=== PATIENT | female | born 1995 | race Caucasian/White ===

== ENCOUNTER 2017-08-30 09:04 | Emergency (ER) | payer OTHER ==
--- NOTE | 2017-08-30 11:32 | UC ---
Lobo Vann Gabriel, scribed for Gina Terry MD on 08/30/17 at 1128 . Ear Complaint HPI - HPI Summary HPI Summary: This patient is a 22 year old F presenting to [facility] with a chief complaint of bilateral ear pain since last night. The patient rates the pain 6/10 in severity. Patient reports eye discharge on waking and nasal congestion. Patient denies ear drainage, vision changes, and hearing loss. Pt was sick last week with a general cold presenting with a fever, chills, and congestion but it has resolved since. 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 Patients medication reviewed during this visit. - History of Current Complaint Chief Complaint: UCGeneralIllness Stated Complaint: EAR PAIN Time Seen by Provider: 08/30/17 11:19 Hx Obtained From: Patient Hx Last Menstrual Period: irreg. just ended a fw days ago Onset/Duration: Lasting Days, Still Present Severity Initially: Moderate Severity Currently: Moderate Pain Intensity: 6 Pain Scale Used: 0-10 Numeric Associated Signs/Symptoms: Negative: Discharge, Hearing Loss - Allergies/Home Medications Allergies/Adverse Reactions: Allergies Allergy/AdvReac Type Severity Reaction Status Date / Time No Known Allergies Allergy Verified 08/30/17 09:44 PMH/Surg Hx/FS Hx/Imm Hx Previously Healthy: Yes - Surgical History Surgical History: None - Family History Known Family History: Positive: Hypertension Negative: Cardiac Disease, Diabetes, Renal Disease, Respiratory Disease, Seizure Disorder - Social History Occupation: Employed Full-time - Nanny, Student Lives: With Family Alcohol Use: Weekly Substance Use Type: None Smoking Status (MU): Never Smoked Tobacco Review of Systems Constitutional: Negative - fever and chills Eyes: Drainage, Eye Redness ENT: Ear Ache, Sinus Pain/Tenderness All Other Systems Reviewed And Are Negative: Yes Physical Exam Triage Information Reviewed: Yes Appearance: Well-Nourished, Other: - congested Vital Signs: Initial Vital Signs Temp 97.9 F 08/30/17 09:46 Pulse 74 08/30/17 09:46 Resp 18 08/30/17 09:46 BP 143/87 08/30/17 09:46 Pulse Ox 100 08/30/17 09:46 Eyes: Positive: Conjunctiva Inflamed, Discharge, Other: - CATRACHITO, EOM intact no photophobia + injected yellow d/c ENT: Positive: Hearing grossly normal, Pharyngeal erythema, Nasal drainage, TM bulging, TM dull, TM red, Sinus tenderness, Uvula midline, Other - ++ fluid b/l ear + fluid + turbinates inflammed and boggy + PND no exudate no erythema Dental Exam: Normal Neck exam: Normal Neck: Positive: Supple, Nontender, No Lymphadenopathy Respiratory Exam: Normal Respiratory: Positive: Chest non-tender, Lungs clear, Normal breath sounds, No respiratory distress Cardiovascular Exam: Normal Abdominal Exam: Normal Musculoskeletal Exam: Normal Neurological Exam: Normal Psychological Exam: Normal Skin Exam: Normal Ear Complaint Course/Dx - Course Course Of Treatment: BP noted and advised to follow up with PCP. Pt with sinus congestion, bilateral ear pain, injected, eye discharge. Pt with bilat OM and eye injection. will Rx abx. decongestant. secretion precaution. apap/ ibuprofen - Differential Dx/Diagnosis Provider Diagnoses: Elevated blood pressure without a previous diagnoses of hypertension. conjunctivitis. bilateral otitis media Discharge - Discharge Plan Condition: Stable Disposition: HOME Prescriptions: Amoxicillin PO (*) [Amoxicillin 875 MG (*)] 875 mg PO BID #20 tab Polymyx/Trimethoprim OPTH* [Polytrim OPHTH*] 1 drop BOTH EYES Q3H #1 btl Patient Education Materials: Ear Infection (ED), Conjunctivitis (ED) Referrals: No Primary Care Phys,NOPCP [Primary Care Provider] - Additional Instructions: Your blood pressure was elevated during today's visit. Please follow up with your primary care provider in 1-2 weeks. - Take antibiotics as prescribed until gone - Use eye drops as prescribed -These infections are spread by oral secretions. Do not share eating or drinking utensils. Frequent hand washing is important. Clean items that may get your secretions on them such as cell phones, ipads, computer mouse, television remotes. . After you have taken antibiotics for 3 days, change your toothbrush and your pillowcase. - Okay to alternate ibuprofen (advil, Motrin) and tylenol every 3hours for pain. Take with food. - Okay to take over the counter medication for congestion - contact your doctor, the physician referral center, return here or go to the emergency department with question or concerns The documentation as recorded by the Lobo malik Gabriel accurately reflects the service I personally performed and the decisions made by me, Gina Terry MD.
== END 2017-08-30 11:59 | disposition home or self-care (01) ==
LOC: UCEAST 09:04
DX: H66.93 Otitis media, unspecified, bilateral (principal); H10.30 Unspecified acute conjunctivitis, unspecified eye; R03.0 Elevated blood-pressure reading, without diagnosis of hypertension
CPT/HCPCS: 99202; G0463